=== PATIENT | female | born 1960 | race American Indian/Alaskan Native ===

== ENCOUNTER 2022-05-15 09:37 | Outpatient (CLI) | payer OTHER ==
--- NOTE | 2022-05-15 12:48 | Vascular Lab Report ---
DUPLEX DOPPLER LOWER EXTREMITY VEINS, LEFT INDICATION / CLINICAL INFORMATION: M79.662 Pain in left lower leg. TECHNIQUE: Duplex doppler imaging was performed through the veins of the left lower extremity using v enous compression and other maneuvers. COMPARISON: None available. FINDINGS: LEFT COMMON FEMORAL VEIN: Negative. LEFT FEMORAL VEIN: Negative. LEFT POPLITEAL VEIN: Negative. LEFT CALF VEINS: Negative. ADDITIONAL FINDINGS: None. IMPRESSION: 1. No sonographic evidence for DVT in the left lower extremity. Scribed by: Radha Davis RDMS, VALERIA, LACI Scribed: 05/15/2022 10:38 AM I have reviewed the images, agree with this report, and edited this report as needed. Signer Name: Shahbaz Armenta MD Signed: 05/15/2022 12:44 PM Workstation Name: [id number]
== END 2022-05-15 09:38 | disposition home or self-care (01) ==
LOC: VAS 09:37
PROVIDERS: ATTEND Physician Assistant
DX: M79.662 Pain in left lower leg (principal); M79.89 Other specified soft tissue disorders